=== PATIENT | female | born 1990 | race African-American/Black ===

== ENCOUNTER 2017-06-26 14:35 | Inpatient (IN) | payer OTHER ==
[~2017-06-26] VITALS: Ht 180.3 cm; Wt 106.6 kg
--- NOTE | ~2017-06-26 | H ---
[facility] [address] [address] HISTORY AND PHYSICAL Name: ULI SINGLETON Room #: 430-P ADM IN M.R.#: [id number] Admission: 06/27/17 Attend Phys: Kamran Madison MD Discharge: Date of : 89 Report #: [id number] THIS REPORT FOR: //name// CC: Cristin Madison DATE OF SERVICE: 06/27/2017 CHIEF COMPLAINT: Depression and suicidal ideation. HISTORY OF PRESENT ILLNESS: The patient is a 27-year-old female with history of depression, history of suicidal ideation in the past, presented to the emergency room complaining of suicidal ideation. Apparently, she has been stressed out over the last couple of weeks. 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 She felt very depressed and the idea of taking prescription medication at home. Apparently, she did not go through with her plan. She drove back home and the police were at her house and they brought her to the ED. The patient states she feels a little better. She is still very depressed. PAST MEDICAL HISTORY: Significant for depression, history of suicidal ideation in the past. No history of any peptic ulcer disease, bleeding disorder. History of pericarditis in December. She had bilateral PE in 2016 and for 6 months. ALLERGIES: SHE IS ALLERGIC TO HYDROCODONE. HOME MEDICATIONS: None. SOCIAL HISTORY: No smoking, alcohol abuse, or illicit drug abuse. FAMILY HISTORY: Significant for diabetes and also for depression. REVIEW OF SYSTEMS: CONSTITUTIONAL: No recent weight loss, weight gain. No fever or chills. EYES: No change in vision. THROAT: Denies any sore throat. CARDIOVASCULAR: No chest pain, dizziness, palpitations. RESPIRATORY: No cough or expectoration. GASTROINTESTINAL: No nausea or vomiting. GENITOURINARY: No dysuria, hematuria. NEUROLOGIC: No focal numbness or weakness of the extremities. PSYCHIATRIC: As above. PHYSICAL EXAMINATION: VITAL SIGNS: Reviewed. Blood pressure is 114/62, heart rate of 60 per minute, [facility] [address] [place] [address] HISTORY AND PHYSICAL Name: ULI SINGLETON Room #: 430-P [facility] IN M.R.#: [id number] Admission: 06/27/17 Attend Phys: Kamran Madison MD Discharge: Date of : 89 Report #: [id number] afebrile. GENERAL: The patient is awake and alert, not in acute respiratory distress. EYES: Pupils equal, reactive to light, nonicteric conjunctivae. Throat appears normal. NECK: Supple, no JVD, no bruit, no lymphadenopathy. CARDIOVASCULAR SYSTEM: S1, S2, negative S3, no murmur. CHEST: Bilateral air entry present. Clear on auscultation. ABDOMEN: Soft, bowel sounds present, no mass, no organomegaly, no tenderness. PERIPHERY: No pedal edema. No calf tenderness. Dorsalis pedis 1+. NEUROLOGICAL: No gross motor deficit. The patient seems to be very withdrawn and appears depressed. LABORATORY DATA: Reviewed. CBC revealed a white count of 8.3, normal hemoglobin, hematocrit, and platelet. AST and ALT are within normal limits. BMP is within normal limits. Serum alcohol was less than 10. Urine drug screen was negative. UA is unremarkable. Urine hCG was negative. ASSESSMENT AND PLAN: Depression and suicidal ideation. The patient was evaluated by [facility] and was recommended inpatient psychiatry. The patient has been sitting in the emergency room for 19 hours awaiting transfer to inpatient psychiatric facility. The patient has subsequently been admitted while she is awaiting transfer to inpatient psychiatry. The patient will be continued on one-to-one sitter. Psychiatrist will be consulted here. I will also add a TSH level. She will be placed on sequential compression devices on the leg for deep venous thrombosis prophylaxis. Treatment plan has been explained to the patient in detail. <ELECTRONICALLY SIGNED> By: Kamran Madison MD 06/27/17 [id number] Kamran Madison MD /nt
[2017-06-26 14:40] VITALS: BP 126/96
[2017-06-26 14:57] LABS: ABSOLUTE NEUTROPHILS 4.8 thou/uL (1.4-8.2); BASOPHILS 0.9 % (0.0-2.0); EOSINOPHILS 1.6 % (0.0-3.0); HEMATOCRIT 42.3 % (37.0-47.0); HEMOGLOBIN 14.1 gm/dL (12.0-15.0); LYMPHOCYTES 33.3 % (24.0-44.0); MCH 28.8 pg (26.0-34.0); MCHC 33.3 g/dL (28.0-37.0); MCV 86.2 fL (80.0-100.0); PLATELET COUNT 325 thou/uL (150-400); POLYS 58.2 % (36.0-66.0); RDW 13.6 % (10.5-14.5); WBC 8.3 thou/uL (4.0-11.0)
[2017-06-26 15:01] LABS: URINE BILIRUBIN NEGATIVE (Negative); URINE BLOOD NEGATIVE (Negative); URINE COLOR YELLOW; URINE GLUCOSE-RANDOM* NEGATIVE (Negative); URINE KETONES NEGATIVE (Negative); URINE NITRITE NEGATIVE (Negative); URINE PROTEIN (DIPSTICK) NEGATIVE (Negative); URINE UROBILINOGEN 0.2 E.U./dl (0.2-1.0)
[2017-06-26 15:04] LABS: MANUAL DIFF NO
[2017-06-26 15:09] LABS: AMP/METHAMP Negative (Negative); BARBITURATES Negative (Negative); BENZODIAZEPINES Negative (Negative); COCAINE Negative (Negative); METHADONE Negative (Negative); OPIATES Negative (Negative); PCP Negative (Negative); THC Negative (Negative)
[2017-06-26 15:11] LABS: ANION GAP 10 mmol/L (7-16); BUN 12 mg/dL (7-18); CALCIUM 9.7 mg/dL (8.5-10.1); CHLORIDE 106 mmol/L (98-107); CO2 26 mmol/L (21-32); CREATININE 0.9 mg/dL (0.6-1.0); GLUCOSE 89 mg/dL (74-106); SODIUM 142 mmol/L (136-145)
[2017-06-26 15:17] LABS: ACETAMINOPHEN < 2 ug/mL (10-30); ALBUMIN 3.9 g/dL (3.4-5.0); ALKALINE PHOSPHATASE 77 U/L (46-116); SALICYLATE < 2.8 mg/dL (2.8-20.0); SGOT 19 U/L (15-37); SGPT 23 U/L (30-65); TOTAL BILIRUBIN 0.3 mg/dL (<0.1-1.0)
[2017-06-27 09:32] VITALS: BP 115/63
[2017-06-27 10:14] VITALS: BP 114/62
== END 2017-06-27 13:53 | DRG 880 ==
LOC: ER 14:35 → EROBS 06-27 09:29 → 4E 06-27 10:15
PROVIDERS: Physician Assistant
DX: R45.851 Suicidal ideations (principal); F32.9 Major depressive disorder, single episode, unspecified; Z86.711 Personal history of pulmonary embolism; Z79.01 Long term (current) use of anticoagulants; Z88.6 Allergy status to analgesic agent; Z91.5 Personal history of self-harm; Z81.8 Family history of other mental and behavioral disorders; Z83.3 Family history of diabetes mellitus
CPT/HCPCS: 10183